=== PATIENT | female | born 1990 | race Caucasian/White ===

== ENCOUNTER 2016-07-04 14:31 | Observation (INO) | payer MEDICAID ==
[~2016-07-04 14:31] MED LIST: "\\\"ANTIBIOTIC\\\""; ACETAMINOPHEN325 M2 PO; BIRTH CONTROL; BIRTH CONTROL PO; FLAGYL500 MG PO; FOCALIN XR20 MG; IBUPROFEN200 M3 PO; IBUPROFEN400 M1 PO; LEXAPRO10 MG; LEXAPRO5 MG; MELATONIN3 MG; MOTRIN800 MG PO; NO MEDS; NORCO 5/325 TAB1 TAB PO; ORTHO TRI-7 DAYSX 3; OXYCODONE/APAP PO; PRENATAL VITAM1 EAC5; PRENATAL1 EACH PO; PRENATAL1 TAB PO; VENTOLIN HFA18 GM INH; VISTARIL50 M1 PO; ZITHROMAX250MG Z-PAK PO
[2016-07-04] MEDS ORDERED: PRENA1 CHEW TA1.4 M1 PO (16:16)
[2016-07-04 16:26] LABS: BASO % 0.2 % (0-2); EOS % 1.2 % (0-7); EOSINOPHIL ABSOLUTE COUNT 0.2 tho/cmm (0.0-0.7); HCT-HEMATOCRIT 37.3 % (34.0-49.0); HGB-HEMOGLOBIN 12.4 gm/dl (12.0-15.5); IMMATURE GRANULOCYTES ABSOLUTE 0.16 tho/cmm (0-0.03); LYMPH % 16.1 % (20-45); LYMPH ABSOLUTE COUNT 2.6 tho/cmm (0.8-4.5); MCH (MEAN CORPUSCULAR HGB) 30.3 pg (28.0-32.0); MCHC MEAN CORPUSCULAR HGB CONC 33.2 % (32.0-36.0); MCV (MEAN CELL VOLUME) 91.2 fl (82.0-96.0); MEAN PLATELET VOLUME 10.1 cmc (9.4-12.4); MONO % 6.6 % (0-12); MONOCYTE ABSOLUTE COUNT 1.1 tho/cmm (0.0-1.2); NEUTROPHILS % 74.9 % (40-80); PLATELET COUNT 247 tho/cmm (150-450); RED BLOOD COUNT 4.09 mil/cmm (4.00-5.20); RED CELL DISTRIBUTION WIDTH 14.5 % (12.4-16.4)
[2016-07-04 20:18] LABS: URINE BILIRUBIN NEGATIVE (NEG); URINE BLOOD NEGATIVE (NEG); URINE GLUCOSE (UA) MODERATE (NEG); URINE KETONE MODERATE (NEG); URINE LEUKOCYTE ESTERASE POSITIVE (NEG); URINE NITRITE NEGATIVE (NEG); URINE PH 6.5 (5.0-8.0); URINE PROTEIN SMALL (NEG)
[2016-07-04 20:27] LABS: URINE APPEARANCE SL CLOUDY; URINE COLOR YELLOW
[2016-07-04 20:30] LABS: URINE EPITHELIAL CELLS 20-30 /[HPF] (0-10); URINE RBC 0 /[HPF] (0-5)
[2016-07-05] MEDS ORDERED: ENDOMETRIN100 MG VG (15:53)
[2016-11-12] MEDS ORDERED: ANTIBIOTIC PO (16:00)
[2016-11-12] MEDS ORDERED: INHALER INH (16:02)
== END 2016-07-05 16:05 ==
LOC: OBGE 14:31
PROVIDERS: Obstetrics & Gynecology; ADMIT Obstetrics & Gynecology Obstetrics
DX: O26.872 Cervical shortening, second trimester (principal); Z3A.25 25 weeks gestation of pregnancy; Z79.899 Other long term (current) drug therapy; Z88.0 Allergy status to penicillin; Z90.89 Acquired absence of other organs; Z98.890 Other specified postprocedural states
CPT/HCPCS: J0702

== ENCOUNTER 2016-07-10 09:48 | Inpatient (IN) | payer MEDICAID ==
[~2016-07-10 09:48] MED LIST changes: +ENDOMETRIN100 MG VG; +PRENA1 CHEW TA1.4 M1 PO
[2016-07-10 12:55] LABS: BASO % 0.2 % (0-2); EOSINOPHIL ABSOLUTE COUNT 0.2 tho/cmm (0.0-0.7); HCT-HEMATOCRIT 38.7 % (34.0-49.0); HGB-HEMOGLOBIN 12.9 gm/dl (12.0-15.5); IMMATURE GRANULOCYTES ABSOLUTE 0.58 tho/cmm (0-0.03); IMMATURE GRANULOCYTES PERCENT 2.9 % (0-0.3); LYMPH ABSOLUTE COUNT 3.3 tho/cmm (0.8-4.5); MCH (MEAN CORPUSCULAR HGB) 30.4 pg (28.0-32.0); MCHC MEAN CORPUSCULAR HGB CONC 33.3 % (32.0-36.0); MCV (MEAN CELL VOLUME) 91.3 fl (82.0-96.0); MEAN PLATELET VOLUME 10.1 cmc (9.4-12.4); MONO % 8.5 % (0-12); MONOCYTE ABSOLUTE COUNT 1.7 tho/cmm (0.0-1.2); NEUTROPHIL ABSOLUTE COUNT 14.5 tho/cmm (1.6-8.0); NEUTROPHIL-AUTOMATED 14.5 tho/cmm (1.6-8.0); NEUTROPHILS % 71.4 % (40-80); PLATELET COUNT 272 tho/cmm (150-450); RED BLOOD COUNT 4.24 mil/cmm (4.00-5.20); RED CELL DISTRIBUTION WIDTH 14.7 % (12.4-16.4); WHITE BLOOD COUNT 20.3 tho/cmm (4.0-10.0)
[2016-07-10 14:19] LABS: URINE APPEARANCE CLEAR; URINE BILIRUBIN NEGATIVE (NEG); URINE BLOOD NEGATIVE (NEG); URINE COLOR YELLOW; URINE GLUCOSE (UA) NEGATIVE (NEG); URINE KETONE NEGATIVE (NEG); URINE LEUKOCYTE ESTERASE POSITIVE (NEG); URINE NITRITE NEGATIVE (NEG); URINE PROTEIN SMALL (NEG); URINE SPECIFIC GRAVITY 1.015 (1.003-1.030)
[2016-07-10 14:34] LABS: URINE EPITHELIAL CELLS 0-2 /[HPF] (0-10); URINE RBC 0-2 /[HPF] (0-5)
--- NOTE | 2016-07-11 23:39 | NUR ---
2320-RN INFORMS PATIENT THAT MD DOES NOT WANT HER LEAVING THE FLOOR. PATIENT VERBALIZES UNDERSTANDING, ALTHOUGH STATES SHE WILL CONTIUE TO GO OUT TO SMOKE.
[2016-07-12 12:21] LABS: BASO % 0.2 % (0-2); EOS % 1.2 % (0-7); EOSINOPHIL ABSOLUTE COUNT 0.2 tho/cmm (0.0-0.7); HCT-HEMATOCRIT 36.1 % (34.0-49.0); HGB-HEMOGLOBIN 11.8 gm/dl (12.0-15.5); IMMATURE GRANULOCYTES ABSOLUTE 0.37 tho/cmm (0-0.03); IMMATURE GRANULOCYTES PERCENT 2.2 % (0-0.3); LYMPH ABSOLUTE COUNT 2.7 tho/cmm (0.8-4.5); MCH (MEAN CORPUSCULAR HGB) 29.9 pg (28.0-32.0); MCHC MEAN CORPUSCULAR HGB CONC 32.7 % (32.0-36.0); MCV (MEAN CELL VOLUME) 91.6 fl (82.0-96.0); MEAN PLATELET VOLUME 10.2 cmc (9.4-12.4); MONOCYTE ABSOLUTE COUNT 1.2 tho/cmm (0.0-1.2); NEUTROPHIL ABSOLUTE COUNT 12.2 tho/cmm (1.6-8.0); NEUTROPHIL-AUTOMATED 12.2 tho/cmm (1.6-8.0); NEUTROPHILS % 73.4 % (40-80); PLATELET COUNT 248 tho/cmm (150-450); RED BLOOD COUNT 3.94 mil/cmm (4.00-5.20); RED CELL DISTRIBUTION WIDTH 14.5 % (12.4-16.4); WHITE BLOOD COUNT 16.7 tho/cmm (4.0-10.0)
[2016-07-14 05:09] LABS: BASO % 0.2 % (0-2); EOS % 1.2 % (0-7); EOSINOPHIL ABSOLUTE COUNT 0.2 tho/cmm (0.0-0.7); HCT-HEMATOCRIT 35.7 % (34.0-49.0); HGB-HEMOGLOBIN 11.8 gm/dl (12.0-15.5); IMMATURE GRANULOCYTES ABSOLUTE 0.27 tho/cmm (0-0.03); IMMATURE GRANULOCYTES PERCENT 1.7 % (0-0.3); LYMPH % 17.2 % (20-45); LYMPH ABSOLUTE COUNT 2.8 tho/cmm (0.8-4.5); MCH (MEAN CORPUSCULAR HGB) 30.4 pg (28.0-32.0); MCHC MEAN CORPUSCULAR HGB CONC 33.1 % (32.0-36.0); MEAN PLATELET VOLUME 9.9 cmc (9.4-12.4); MONO % 7.6 % (0-12); MONOCYTE ABSOLUTE COUNT 1.2 tho/cmm (0.0-1.2); NEUTROPHIL ABSOLUTE COUNT 11.8 tho/cmm (1.6-8.0); NEUTROPHIL-AUTOMATED 11.8 tho/cmm (1.6-8.0); NEUTROPHILS % 72.1 % (40-80); PLATELET COUNT 239 tho/cmm (150-450); RED BLOOD COUNT 3.88 mil/cmm (4.00-5.20); RED CELL DISTRIBUTION WIDTH 14.5 % (12.4-16.4); WHITE BLOOD COUNT 16.3 tho/cmm (4.0-10.0)
--- NOTE | 2016-07-14 10:25 | NUR ---
DR. CARDOZA TO VISIT PATIENT. NO NEW ORDERS GIVEN.
--- NOTE | 2016-07-17 09:27 | NUR ---
PATIENT WAS SLEEPING WHEN CHECKED ON ROUNDS AT 0700 AND 0815. DID NOT AROUSE WHEN NURSE KNOCKED ON DOOR AND ENTERED ROOM. AWAKENED AT 0915 THIS NURSE AND PAULA RODRIGUEZ NURSE ENTER. VITAL SIGNS OBTAINED AND PATIENT INFORMED THAT WE WOULD LIKE TO PUT HER ON THE FHR MONITOR. NURSE SUGGESTS SHE USE BATHROOM FIRST. NURSE RETURNS TO ROOM, SHE HAS HER STREET CLOTHES ON AND IS WALKING OUT OF HER ROOM. SHE STATES "I'LL BE BACK IN A MINUTE"
[2016-11-12] MEDS ORDERED: ANTIBIOTIC PO (16:00)
[2016-11-12] MEDS ORDERED: INHALER INH (16:02)
== END 2016-07-17 16:15 | DRG 781 ==
LOC: LDR 09:48 → OBGD 07-15 14:32
PROVIDERS: Obstetrics & Gynecology Maternal & Fetal Medicine; ADMIT Obstetrics & Gynecology Obstetrics
DX: O26.872 Cervical shortening, second trimester (principal); O99.342 Other mental disorders complicating pregnancy, second trimester; O47.02 False labor before 37 completed weeks of gestation, second trimester; O09.212 Supervision of pregnancy with history of pre-term labor, second trimester; F32.9 Major depressive disorder, single episode, unspecified; Z3A.26 26 weeks gestation of pregnancy; F41.9 Anxiety disorder, unspecified; O32.1XX0 Maternal care for breech presentation, not applicable or unspecified; Z87.891 Personal history of nicotine dependence
CPT/HCPCS: G8978-GP-CI; G8979-GP-CI; G8980-GP-CI

== ENCOUNTER 2016-08-16 14:19 | Observation (INO) | payer MEDICAID ==
[2016-08-16] MEDS ORDERED: [UNRECOGNIZED DRUG - OTHER] IM (14:52)
[2016-08-16 16:16] LABS: BASO % 0.2 % (0-2); EOS % 1.4 % (0-7); EOSINOPHIL ABSOLUTE COUNT 0.2 tho/cmm (0.0-0.7); HGB-HEMOGLOBIN 11.9 gm/dl (12.0-15.5); IMMATURE GRANULOCYTES ABSOLUTE 0.22 tho/cmm (0-0.03); IMMATURE GRANULOCYTES PERCENT 1.6 % (0-0.3); LYMPH % 15.3 % (20-45); LYMPH ABSOLUTE COUNT 2.2 tho/cmm (0.8-4.5); MCH (MEAN CORPUSCULAR HGB) 30.1 pg (28.0-32.0); MCHC MEAN CORPUSCULAR HGB CONC 33.1 % (32.0-36.0); MCV (MEAN CELL VOLUME) 90.9 fl (82.0-96.0); MEAN PLATELET VOLUME 10.5 cmc (9.4-12.4); MONO % 5.9 % (0-12); MONOCYTE ABSOLUTE COUNT 0.8 tho/cmm (0.0-1.2); NEUTROPHIL ABSOLUTE COUNT 10.6 tho/cmm (1.6-8.0); NEUTROPHIL-AUTOMATED 10.6 tho/cmm (1.6-8.0); NEUTROPHILS % 75.6 % (40-80); PLATELET COUNT 204 tho/cmm (150-450); RED BLOOD COUNT 3.96 mil/cmm (4.00-5.20); WHITE BLOOD COUNT 14.1 tho/cmm (4.0-10.0)
[2016-08-16 17:41] LABS: URINE APPEARANCE HAZY; URINE BILIRUBIN NEGATIVE (NEG); URINE BLOOD NEGATIVE (NEG); URINE COLOR YELLOW; URINE GLUCOSE (UA) NEGATIVE (NEG); URINE KETONE SMALL (NEG); URINE LEUKOCYTE ESTERASE POSITIVE (NEG); URINE NITRITE NEGATIVE (NEG); URINE PROTEIN SMALL (NEG)
[2016-08-16 17:47] LABS: URINE AMORPHOUS 1+; URINE BACTERIA 1+; URINE MUCUS 2+
[2016-11-12] MEDS ORDERED: ANTIBIOTIC PO (16:00)
[2016-11-12] MEDS ORDERED: INHALER INH (16:02)
== END 2016-08-16 18:20 ==
LOC: LDR 14:19
PROVIDERS: ADMIT Obstetrics & Gynecology
DX: O47.03 False labor before 37 completed weeks of gestation, third trimester (principal); Z3A.31 31 weeks gestation of pregnancy; Z79.899 Other long term (current) drug therapy; Z88.0 Allergy status to penicillin; Z90.89 Acquired absence of other organs; Z98.890 Other specified postprocedural states
CPT/HCPCS: J3105

== ENCOUNTER 2016-08-23 06:12 | Inpatient (IN) | payer MEDICAID ==
[~2016-08-23 06:12] MED LIST changes: +[UNRECOGNIZED DRUG - OTHER] IM
[2016-08-24 05:41] LABS: BASO % 0.2 % (0-2); EOS % 1.5 % (0-7); EOSINOPHIL ABSOLUTE COUNT 0.2 tho/cmm (0.0-0.7); HCT-HEMATOCRIT 34.7 % (34.0-49.0); HGB-HEMOGLOBIN 11.4 gm/dl (12.0-15.5); IMMATURE GRANULOCYTES ABSOLUTE 0.16 tho/cmm (0-0.03); IMMATURE GRANULOCYTES PERCENT 1.1 % (0-0.3); LYMPH % 20.5 % (20-45); LYMPH ABSOLUTE COUNT 3.1 tho/cmm (0.8-4.5); MCHC MEAN CORPUSCULAR HGB CONC 32.9 % (32.0-36.0); MCV (MEAN CELL VOLUME) 91.3 fl (82.0-96.0); MEAN PLATELET VOLUME 10.5 cmc (9.4-12.4); MONO % 7.7 % (0-12); MONOCYTE ABSOLUTE COUNT 1.2 tho/cmm (0.0-1.2); NEUTROPHIL ABSOLUTE COUNT 10.4 tho/cmm (1.6-8.0); NEUTROPHIL-AUTOMATED 10.4 tho/cmm (1.6-8.0); PLATELET COUNT 197 tho/cmm (150-450)
[2016-11-12] MEDS ORDERED: ANTIBIOTIC PO (16:00)
[2016-11-12] MEDS ORDERED: INHALER INH (16:02)
== END 2016-08-25 16:35 | DRG 775 ==
LOC: LDR 06:12 → OBGD 11:45
PROVIDERS: Obstetrics & Gynecology; ADMIT Obstetrics & Gynecology Obstetrics
PROC: 10907ZC Drainage of Amniotic Fluid, Therapeutic from Products of Conception, Via Natural or Artificial Opening (ICD-10-PCS; principal; 2016-08-23)
PROC: 10E0XZZ Delivery of Products of Conception, External Approach (ICD-10-PCS; 2016-08-23)
DX: O60.14X0 Preterm labor third trimester with preterm delivery third trimester, not applicable or unspecified (principal); Z37.0 Single live birth; Z3A.32 32 weeks gestation of pregnancy
CPT/HCPCS: J2590